=== PATIENT | female | born 1935 | race Caucasian/White ===

== ENCOUNTER 2019-11-02 10:00 | Outpatient (RCR) | payer MEDICARE, SELFPAY ==
--- NOTE | 2019-09-17 15:20 | PTOPEVAL ---
INITIAL PHYSICAL THERAPY EVALUATION and PLAN OF CARE Thank you for referring Tori Garcia to [facility]. She will be seen 2x/wk x 6 wks. Please review, sign, date and return this plan of care JAMES. I agree with and certify that the following plan of care is medically necessary. Referring Physician Date Admitting Provider: Attending Provider: Serjio Kruse MD Referring Provider: *PT Outpatient Evaluation Start: 09/17/19 11:58 Freq: Status: Active Protocol: Document 09/17/19 11:45 CY (Rec: 09/17/19 13:09 CY [email or web address]) Therapy Assessment Status Assessment Status Assessment Status Evaluation Outpatient Past Medical History Past Medical History Source of Past Medical History Patient,Family/Significant Other Neurological History Hx Neurological Disorders No Significant History Cardiovascular History Hx Hypercholesterolemia Yes Hx Hypertension Yes Hx Pacemaker Yes: 06/2018 Respiratory History Hx Respiratory Disorders No Significant History Gastrointestinal History Hx Cholecystectomy Yes Genitourinary History Hx Genitourinary Disorders No Significant History Musculoskeletal History Hx Back Pain Yes Hx Fractures Yes: R distal radius 04/01/19 Hx Spinal Surgery Yes: lumbar spine - rods, screws Endocrine History Hx Endocrine Disorders No Significant History HEENT History Hx Cataracts Yes Reproductive History Hx Hysterectomy Yes Other History Hx Cancer Yes: lymphoma - port in place L chest Evaluation Information Problem Diagnosis R distal radial fracture Onset 04/01/2019 Subjective Information stubbed toe - fell - reached Query Text:As Reported By Patient/ out with R hand - fractured - Family hospitalized - x 2 wks - using wheeled walker with platform support for R forearm Does take brace off at times - not sure if she is using hand to feed herself. Tori was a poor historian this date . Afraid to use R hand/arm due to pain that occurs with use. Before fall - did laundry, grocery shopping, cooking, driving - Now - ADLs, IADLs with L hand Diagnostic Tests X-Rays For This Problem Yes Prior Level of Function
--- NOTE | 2019-10-05 09:33 | PCPTNOTE ---
Mix up with appointment time - unable to reschedule for later in the day.
--- NOTE | 2019-10-19 10:25 | PCPTNOTE ---
Tori's daughter called to cancel today's appointment due to increased bruising R hand - 4th MCP jt. There had been increased size of blood vessel at this region on day of last treatment.
--- NOTE | 2019-10-24 08:18 | PCPTNOTE ---
Patient called & cancelled scheduled appointment this date due to no transportation.
--- NOTE | 2019-10-26 10:22 | PCPTNOTE ---
Patient called & cancelled scheduled appointment this date due to not feeling well.
--- NOTE | 2019-11-02 11:36 | PTOPEVAL ---
PHYSICAL THERAPY DISCHARGE SUMMARY Thank you for referring Tori Garcia to [facility]. Tori was seen for 8 visits in PT. All goals were met with exception of R wrist flexion. She is to continue with her HEP. I agree with Tori's discharge from physical therapy. Referring Physician Date Admitting Provider: Attending Provider: Serjio Kruse MD Referring Provider: *PT Outpatient Evaluation Start: 09/17/19 11:58 Freq: Status: Active Protocol: Document 11/02/19 10:05 CY (Rec: 11/02/19 11:35 CY [email or web address]) Therapy Assessment Status Assessment Status Assessment Status Discharge Outpatient Past Medical History Evaluation Information Problem Subjective Information Tori reports that she is Query Text:As Reported By Patient/ doing her HEP with her putty. Family She states that she is now using her R hand for washing her hair, washing her face, dishes, etc. She has constant aching sensation with wrist - mainly on ulnar side but first thing in morning will have some radial sided pain. Pain Assessment Timing of Pain Assessment Timing of Pain Assessment Assessment Pain Scale Pain Scale Used Numeric (1 - 10) Self Report Pain Assessment Right Wrist(s) Reported Pain Level 3 Pain Description Aching,Burning Lowest Pain Intensity 2 Greatest Pain Intensity 3 Pain Score Pain Score 3: Self Report Upper Extremity Range of Motion Elbow/Forearm Range of Motion Right Forearm Supination - Active 34 Forearm Supination - Passive 55 Forearm Pronation - Active 90 Wrist Range of Motion Right Wrist Flexion - Active 25 Wrist Flexion - Passive 30 Wrist Extension - Active 70 Wrist Radial Deviation - Active 13 Wrist Radial Deviation - Passive 18 Wrist Ulnar Deviation - Active 18 Wrist Ulnar Deviation - Passive 22 Upper Extremity Muscle Strength Testing Wrist Strength Right Wrist Strength Comments dynometer - 10, 10, 10 - average 10 lbs Left Wrist Strength Comments dynometer - 20, 24, 24 - average 22.7 lbs Finger Strength Right Finger Strength Comments godfrey pinch - 10 oz, 8 oz, 6 oz - average 8 oz Left Finger Strength Comments godfrey pinch - 1 lb 8 oz, 1 lb 6 oz, 1 lb 6 oz average 1 lb 7 oz PT Clinical Summary Clinical Summary Protocol: PTEVCODE PT Clinical Summary Quick DASH - 27.3%
== END 2019-11-08 10:08 | disposition home or self-care (01) ==
LOC: ANHHIPT 10:00
PROVIDERS: PCP Internal Medicine; Visit Provider Orthopaedic Surgery
DX: S52.501D Unspecified fracture of the lower end of right radius, subsequent encounter for closed fracture with routine healing (principal)
CPT/HCPCS: 97110; 97140; 97161

== ENCOUNTER → 2021-02-25 15:09 | Outpatient (CLI) | payer MEDICARE, SELFPAY ==
--- NOTE | ~2021-02-25 | XR_ITS ---
XR knee LT 2V 02/25/2021 15:44 Indication: Left knee pain Procedure: 2 views left knee Comparison: 12/25/2018 Findings: There is a left total knee arthroplasty. No fracture, subluxation or dislocation. No signif icant joint effusion. No foreign bodies. Impression: 1: No acute bone or joint abnormality. Reviewed, dictated and finalized at location B. IRATORY THERAPY DIRECTOR Impression: 1: No acute bone or joint abnormality.
--- NOTE | ~2021-02-25 | CT_ITS ---
EXAMINATION: CT lumbar spine [facility] EXAM DATE: 02/25/2021 15:54 INDICATION: Chronic low back pain, pain in the left knee. TECHNIQUE: Spiral CT of the lumbar spine was performed without contrast. Axial, coronal and sagittal images lumbar spine were reviewed. The dose-length product (DLP) for this examination was 825.43 mG y-cm. The exposure was tailored according to patient size (auto mA exposure control), and iterative reconstruction (ASIR) was used as additional dose reduction technique. There is no prior study for comparison. FINDINGS: Posterior fusion hardware, L2-L5. Interbody device markers L2-3 and L3-4. Laminectomies at L3 and L4. Partial osseous fusion of vertebral bodies L2-L5. Severe disc disease at T12-L1 and L1-2, moderate at L5-S1. Vacuum disc phenomenon at these 3 levels. No lucency surrounding the screws, no ev idence of loosening. L4-5 fusion and grade 1 anterolisthesis. There is 3-4 mm retrolisthesis L1 on L2 . Mild diffuse loss of upper lumbar vertebral body heights without acute fracture line identified. Ex tensive aortic arterial sclerosis. Exophytic fluid density left renal lesion measuring 3 cm, probably cyst. No evidence of sacral fracture. Level by level evaluation: T12-L1: There is a mild to moderate diffuse disc bulge. Facet arthropathy: Moderate. Neural foraminal stenosis: Mild to moderate bilateral. Central canal stenosis: Mild to moderate. L1-L2: There is a moderate to large diffuse disc bulge. Facet arthropathy: Moderate to severe . Ligamentum flavum enlargement. Neural foraminal stenosis: Moderate to severe right, moderate left. Central canal stenosis: Moderate to severe. L2-L3: This level is fused. Facet arthropathy: Moderate. Neural foraminal stenosis: Mild to moderate right, no left. Central canal stenosis: Probably mild. L3-L4: This level is fused. Facet arthropathy: Fused . Ligamentum flavum enlargement . Neural foraminal stenosis: Moderate left, mild to moderate right. Central canal stenosis: Probably moderate to severe. L4-L5: This level is fused. Facet arthropathy: Fused. Neural foraminal stenosis: Mild to moderate right, mild left. Central canal stenosis: Mild to moderate, posterior decompression. L5-S1: There is a moderate diffuse disc bulge. Facet arthropathy: Severe. Neural foraminal stenosis: Mild to moderate right, mild left. Central canal stenosis: Moderate. IMPRESSION: 1. Intact fusion hardware L2-L5. 2. Advanced disc disease T12-L1, L1-2 with moderate to severe central canal stenosis at L1-2. 3. Probable moderate to severe central canal stenosis L3-4. Reviewed, dictated and finalized at location A. CTOR OF STUDENT FINANCIAL AID IMPRESSION: 1. Intact fusion hardware L2-L5. 2. Advanced disc disease T12-L1, L1-2 with moderate to severe central canal st enosis at L1-2. 3. Probable moderate to severe central canal stenosis L3-4.
--- NOTE | ~2021-02-25 | XR_ITS ---
XR knee RT 2V 02/25/2021 15:44 Indication: Right knee pain Procedure: 2 views right knee Comparison: Comparison to multiple prior studies sequentially, with oldest reviewed study dated 08/2008. Findings: There is severe tricompartment osteoarthritis of the right knee. No fracture or traumatic m alalignment. No significant joint effusion. Osteopenia. Impression: 1: Severe osteoarthritis of the right knee pain Reviewed, dictated and finalized at location B. ING ASSOCIATE Impression: 1: Severe osteoarthritis of the right knee pain
== END ==
PROVIDERS: PCP Internal Medicine; Visit Provider Nurse Practitioner Family
DX: M54.50 Low back pain, unspecified (principal); M17.11 Unilateral primary osteoarthritis, right knee; M25.562 Pain in left knee; M47.815 Spondylosis without myelopathy or radiculopathy, thoracolumbar region; M48.05 Spinal stenosis, thoracolumbar region; M47.817 Spondylosis without myelopathy or radiculopathy, lumbosacral region; M48.07 Spinal stenosis, lumbosacral region; Z98.1 Arthrodesis status; Z96.652 Presence of left artificial knee joint
CPT/HCPCS: 72131; 73560

== ENCOUNTER → 2021-05-27 16:30 | Outpatient (CLI) | payer MEDICARE, SELFPAY ==
--- NOTE | ~2021-05-27 | XR_ITS ---
XR chest 2V 05/27/2021 17:35 Indication: Cough Procedure: 2 view chest Comparison: Comparison to multiple prior studies sequentially, with oldest reviewed study dated 07/11. Findings: Cardiomegaly. Port catheter tip in the SVC near the cavoatrial junction. Sequential pacemak er leads are in expected position. Impression: 1: No acute cardiopulmonary disease. Reviewed, dictated and finalized at location A. GREASER Impression: 1: No acute cardiopulmonary disease.
== END ==
PROVIDERS: PCP Clinical Nurse Specialist; Visit Provider Clinical Nurse Specialist
DX: R05.9 Cough, unspecified (principal)
CPT/HCPCS: 71046

== ENCOUNTER 2021-09-07 13:15 | Outpatient (CLI) | payer MEDICARE, SELFPAY ==
--- NOTE | 2021-09-07 | ECHO_ITS ---
Patient Info Name: Tori Garcia Age: 85 years : 1935 Gender: Female Ht: 59 in Wt: 190 lbs BSA: 1.94 m2 HR: 100 bpm BP: 114 / 74 mmHg Heart Rhythm: Atrial Fibrillation Technical Quality: Fair Exam Date: 09/07/2021 2:02 PM Exam Location: [facility] Patient Status: Outpatient Admit Date: 09/07/2021 Staff Ordering Physician: PHYSICIAN NOT ON STAFF, NONSTAFF Quality Reviewer: Kasia Torres RDCS Attending Provider: PHYSICIAN NOT ON STAFF, NONSTAFF Exam Type: CA echo doppler color flow Study Info Indications I48.0 - Paroxysmal atrial fibrillation Complete two-dimensional, color flow and Doppler transthoracic echocardiogram is performed. Summary 1. Complete two-dimensional, color flow and Doppler transthoracic echocardiogram is performed. 2. Left ventricular chamber dimension is normal. 3. Left ventricular systolic function is normal, estimated at 50-55%. 4. Right ventricular chamber dimension is mildly enlarged. 5. Linear artifact in right ventricle suggestive of catheter(s), pacemaker lead(s), or ICD lead(s). 6. Left atrial chamber dimension is severely enlarged. 7. There is mild aortic valve stenosis with a peak velocity of 230 cm/s, mean gradient of 11 mmHg, and aortic valve area of 1.4 cm2. Left Ventricle Left ventricular chamber dimension is normal. Left ventricular systolic function is normal, estimated at 50-55%. The left ventricular diastolic function is indeterminate. Right Ventricle Right ventricular chamber dimension is mildly enlarged. Linear artifact in right ventricle suggestive of catheter(s), pacemaker lead(s), or ICD lead(s). Left Atria Left atrial chamber dimension is severely enlarged. Right Atria Right atrial chamber dimension is mildly enlarged. Linear artifact in the right atrium suggestive of catheter(s), pacemaker lead(s), or ICD lead(s). Aortic Valve The aortic valve is trileaflet. There is mild aortic valve sclerosis. There is mild aortic valve stenosis with a peak velocity of 230 cm/s, mean gradient of 11 mmHg, and aortic valve area of 1.4 cm2. Pulmonic Valve The pulmonic valve is not well visualized. Mitral Valve The mitral valve has normal leaflets. There is trace mitral valve regurgitation. The mitral valve annulus is moderately calcified. Tricuspid Valve The tricuspid valve leaflets are normal. There is mild tricuspid valve regurgitation. Pericardium/Pleural The pericardium appears normal. Aorta The aortic root size at the sinus of Valsalva is normal. Left Ventricular Outflow Tract Name Value Normal LVOT 2D LVOT Diameter 2.0 cm LVOT Doppler LVOT Peak Gradient 3 mmHg LVOT Mean Gradient 2 mmHg LVOT VTI 21 cm LVOT VTI/AV VTI Ratio 0.4 LVOT Stroke Volume 65 ml LVOT CO 4.9 l/min LVOT CI 2.5 l/min/m2 Pulmonic Valve Name
== END 2021-09-07 13:16 | disposition home or self-care (01) ==
PROVIDERS: PCP Clinical Nurse Specialist
DX: I48.0 Paroxysmal atrial fibrillation (principal); R60.0 Localized edema; I51.7 Cardiomegaly; I35.0 Nonrheumatic aortic (valve) stenosis
CPT/HCPCS: 93306

== ENCOUNTER 2021-09-23 13:40 | Outpatient (CLI) | payer MEDICARE, SELFPAY ==
--- NOTE | ~2021-09-23 | US_ITS ---
EXAMINATION:US venous doppler LE RT INDICATION:Right leg swelling and pain TECHNIQUE: Multiple grayscale, color flow and Doppler images of the right lower extremity deep venous systems were obtained and reviewed. COMPARISON:Ultrasound dated 06/08/2008 FINDINGS: The common femoral, superficial femoral and popliteal veins demonstrate normal respiratory variation, augmentation and compressibility. Color flow is also seen within the posterior tibial, pe roneal, greater saphenous and profunda veins. IMPRESSION: 1: No lower extremity deep venous thrombosis. Reviewed, dictated and finalized at location A.
== END 2021-09-23 13:41 | disposition home or self-care (01) ==
PROVIDERS: PCP Internal Medicine; Visit Provider Internal Medicine
DX: R60.0 Localized edema (principal)
CPT/HCPCS: 93971

== ENCOUNTER 2022-11-23 10:31 | Outpatient (CLI) | payer MEDICARE, SELFPAY ==
[2022-11-23 15:15] LABS: Basophils Percent Auto 0.4 % (0.2-1.2); Eosinophils Absolute Auto 0.1 K/mm3 (0-0.3); Eosinophils Percent Auto 1.2 % (0-4.4); Hematocrit 40.1 % (37.0-47.0); Hemoglobin 12.3 g/dL (12.0-15.0); Immature Granulocyte Absolute 0.02 K/mm3 (0.00-0.031); Immature Granulocyte Percent A 0.3 % (0-0.5); Lymphocytes Absolute Auto 2.25 K/mm3 (0.9-3.2); Lymphocytes Percent Auto 30.4 % (18.3-44.2); Mean Corpuscular HGB Conc 30.7 g/dl (32-36); Mean Corpuscular Hemoglobin 30.4 pg (26-34); Mean Corpuscular Volume 99.3 fl (80-100); Mean Platelet Volume 9.1 fl (7.4-10.4); Monocytes Absolute Auto 0.7 K/mm3 (0.1-0.6); Monocytes Percent Auto 9.6 % (2.6-8.5); Neutrophils Absolute Auto 4.3 K/mm3 (1.3-6.7); Neutrophils Percent Auto 58.1 % (45.5-73.1); Platelet Count Result 276 k/mm3 (150-375); Red Blood Count 4.04 M/mm3 (4.2-5.4); Red Cell Distribution Width 14.5 % (11.5-14.5); White Blood Count 7.4 K/mm3 (4.5-10.0)
[2022-11-23 15:38] LABS: Alanine Aminotransferase 19 U/L (6-35); Alkaline Phosphatase 79 U/L (38-126); Anion Gap 6 mmol/L (8-16); Aspartate Amino Transferase 34 U/L (14-36); Bilirubin,Total 0.6 mg/dL (0.2-1.3); Blood Urea Nitrogen 12 mg/dL (7-17); Calcium 9.5 mg/dL (8.4-10.2); Carbon Dioxide 29 mmol/L (22-30); Chloride 107 mmol/L (98-107); Estimated Glomerular Filt Rate > 60; Glucose 98 mg/dL (65-110); Potassium 4.1 mmol/L (3.4-5.0); Sodium 142 mmol/L (137-145)
[2022-11-23 16:33] LABS: Folic Acid 11.7 ng/mL (2.76->20)
== END 2022-11-23 10:32 | disposition home or self-care (01) ==
PROVIDERS: PCP Internal Medicine; Visit Provider Internal Medicine
DX: D64.9 Anemia, unspecified (principal); I10 Essential (primary) hypertension
CPT/HCPCS: 36415; 80053; 82607; 82728; 82746; 85025

== ENCOUNTER 2023-06-06 10:39 | Outpatient (CLI) | payer MEDICARE, SELFPAY ==
[2023-06-06 18:56] LABS: Basophils Percent Auto 0.3 % (0.2-1.2); Eosinophils Absolute Auto 0.1 K/mm3 (0-0.3); Eosinophils Percent Auto 0.9 % (0-4.4); Hematocrit 40.2 % (37.0-47.0); Hemoglobin 11.9 g/dL (12.0-15.0); Immature Granulocyte Absolute 0.01 K/mm3 (0.00-0.031); Immature Granulocyte Percent A 0.1 % (0-0.5); Lymphocytes Absolute Auto 1.21 K/mm3 (0.9-3.2); Lymphocytes Percent Auto 16.4 % (18.3-44.2); Mean Corpuscular HGB Conc 29.6 g/dl (32-36); Mean Corpuscular Hemoglobin 29.6 pg (26-34); Mean Platelet Volume 9.4 fl (7.4-10.4); Monocytes Absolute Auto 0.6 K/mm3 (0.1-0.6); Monocytes Percent Auto 7.7 % (2.6-8.5); Neutrophils Absolute Auto 5.5 K/mm3 (1.3-6.7); Neutrophils Percent Auto 74.6 % (45.5-73.1); Platelet Count Result 282 k/mm3 (150-375); Red Blood Count 4.02 M/mm3 (4.2-5.4); Red Cell Distribution Width 15.9 % (11.5-14.5); White Blood Count 7.4 K/mm3 (4.5-10.0)
[2023-06-06 19:26] LABS: Vitamin D 25 Hydroxy 37.8 ng/mL
[2023-06-06 20:04] LABS: Alanine Aminotransferase 24 U/L (6-35); Albumin Level 3.9 g/dL (3.5-5.1); Alkaline Phosphatase 91 U/L (38-126); Anion Gap 2 mmol/L (8-16); Aspartate Amino Transferase 46 U/L (14-36); Bilirubin,Total 0.6 mg/dL (0.2-1.3); Blood Urea Nitrogen 17 mg/dL (7-17); Calcium 9.7 mg/dL (8.4-10.2); Carbon Dioxide 28 mmol/L (22-30); Chloride 109 mmol/L (98-107); Estimated Glomerular Filt Rate > 60; Glucose 103 mg/dL (65-110); Sodium 139 mmol/L (137-145)
[2023-06-06 20:09] LABS: Hemoglobin A1C 5.9 % (<5.7)
[2023-06-06 20:50] LABS: Hypochromasia 1+ (NORMAL); Platelet Estimate Adequate (Adequate); Schistocytes None Seen (NORMAL)
[2023-06-06 20:51] LABS: Anisocytosis 1+ (NORMAL)
== END 2023-06-06 10:40 | disposition home or self-care (01) ==
LOC: ANHGOSHLAB 10:41
PROVIDERS: PCP Internal Medicine; Visit Provider Internal Medicine
DX: R79.89 Other specified abnormal findings of blood chemistry (principal); D64.9 Anemia, unspecified; E55.9 Vitamin D deficiency, unspecified; I48.20 Chronic atrial fibrillation, unspecified; R41.3 Other amnesia; Z79.01 Long term (current) use of anticoagulants
CPT/HCPCS: 36415; 80053; 82306; 83036; 85025